=== PATIENT | female | born 1955 | race Caucasian/White ===

== ENCOUNTER 2017-03-07 01:34 | Emergency (ER) | payer OTHER ==
[2017-03-07 02:28] LABS: CALCIUM 8.8 mg/dL (8.5-10.1); CHLORIDE SERUM 101 mmol/L (98-107); CREATININE SERUM 0.9 mg/dL (0.6-1.0); GFR1 > 60 mL/min; GLUCOSE SERUM 121 mg/dL (74-106); SODIUM SERUM 140 mmol/L (136-145)
[2017-03-07 02:31] LABS: ALBUMIN 3.5 g/dL (3.4-5.0); ALKALINE PHOSPHATASE 103 U/L (46-116); ALT/SGPT 25 U/L (14-59); AST/SGOT 12 U/L (15-37); BASOPHIL % 0.1 % (0-2); BILIRUBIN TOTAL 0.4 mg/dL (0.20-1.00); TOTAL PROTEIN, SERUM 7.7 g/dL (6.4-8.2)
[2017-03-07 02:40] LABS: PLATELET COUNT 426 x10^3mcL (130-400); RED CELL DISTRIBUTION WIDTH 17.8 % (11.5-14.5)
[2017-03-07 05:25] VITALS: BP 138/88
== END 2017-03-07 05:25 | disposition home or self-care (01) ==
LOC: ED 01:34
PROVIDERS: Emergency Medicine
DX: R51 Headache (principal); Z88.5 Allergy status to narcotic agent; R11.10 Vomiting, unspecified
CPT/HCPCS: J1170; Q0162

== ENCOUNTER 2017-09-06 12:11 | Emergency (ER) | payer OTHER ==
[2017-09-06 14:27] VITALS: BP 132/83
== END 2017-09-06 14:27 | disposition home or self-care (01) ==
LOC: ED 12:11
DX: S00.83XA Contusion of other part of head, initial encounter (principal); Z88.5 Allergy status to narcotic agent; W50.0XXA Accidental hit or strike by another person, initial encounter; Y93.89 Activity, other specified; Y99.8 Other external cause status; Y92.89 Other specified places as the place of occurrence of the external cause

== ENCOUNTER 2018-04-02 20:38 | Inpatient (IN) | payer OTHER ==
[~2018-04-02] VITALS: Ht 170.2 cm; Wt 93.6 kg
[2018-04-02 21:35] LABS: CALCIUM 8.7 mg/dL (8.5-10.1); CARBON DIOXIDE 29.5 mmol/L (21-32); CHLORIDE SERUM 102 mmol/L (98-107); CREATININE SERUM 0.8 mg/dL (0.6-1.0); GFR1 > 60 mL/min; GLUCOSE SERUM 143 mg/dL (74-106); POTASSIUM SERUM 3.2 mmol/L (3.5-5.1); SODIUM SERUM 138 mmol/L (136-145)
[2018-04-02 21:40] LABS: ALKALINE PHOSPHATASE 83 U/L (46-116); ALT/SGPT 16 U/L (14-59); AST/SGOT 10 U/L (15-37); BILIRUBIN TOTAL 0.2 mg/dL (0.20-1.00); CHOLESTEROL 171 mg/dL (<200); HDL CHOLESTEROL 49 mg/dL (40-60); TOTAL PROTEIN, SERUM 7.2 g/dL (6.4-8.2)
[2018-04-02 21:41] LABS: ALBUMIN 3.2 g/dL (3.4-5.0)
[2018-04-02 21:58] LABS: PLATELET COUNT 455 x10^3mcL (130-400); RED CELL DISTRIBUTION WIDTH 20.8 % (11.5-14.5)
[2018-04-02 22:03] LABS: BAND NEUTROPHIL 1 % (0-10); BASOPHIL 0 % (0-2); MONOCYTE 2 % (0-7); SEGMENTED NEUTROPHILS 68 % (37-75)
[2018-04-02 22:04] LABS: rbc morphology (normal/abnorm) ABNORMAL (NORMAL)
[2018-04-02 22:05] LABS: ovalocyte/elliptocyte 1+
[2018-04-02 22:15] LABS: PATH REVIEW for HEMA YES
[2018-04-02] MEDS ORDERED: PROTONIX40 MG PO (22:58)
[2018-04-02 23:37] VITALS: BP 147/68
[2018-04-03] VITALS (8 sets, daily range): BP systolic 122–150; BP diastolic 63–88
[2018-04-03 02:40] LABS: microscopic required? NO
[2018-04-03 02:54] LABS: UA SPECIFIC GRAVITY 1.015 (1.005-1.035); urine erythrocyte NEGATIVE (NEGATIVE)
[2018-04-03 13:51] LABS: PLATELET COUNT 430 x10^3mcL (130-400); RED CELL DISTRIBUTION WIDTH 27.5 % (11.5-14.5)
[2018-04-03 13:54] LABS: BAND NEUTROPHIL 1 % (0-10); MONOCYTE 6 % (0-7); SEGMENTED NEUTROPHILS 68 % (37-75); rbc morphology (normal/abnorm) ABNORMAL (NORMAL)
[2018-04-03 13:55] LABS: ovalocyte/elliptocyte 1+
[2018-04-04 05:12] VITALS: BP 125/60
[2018-04-04 09:40] VITALS: BP 140/63
[2018-04-04 12:47] VITALS: BP 135/68
[2018-04-04 13:19] LABS: ALBUMIN 3.4 g/dL (3.4-5.0); ALKALINE PHOSPHATASE 86 U/L (46-116); ALT/SGPT 17 U/L (14-59); AST/SGOT 18 U/L (15-37); BILIRUBIN TOTAL 0.45 mg/dL (0.20-1.00); CALCIUM 8.9 mg/dL (8.5-10.1); CARBON DIOXIDE 31.3 mmol/L (21-32); CHLORIDE SERUM 102 mmol/L (98-107); CREATININE SERUM 0.8 mg/dL (0.6-1.0); GFR1 > 60 mL/min; GLUCOSE SERUM 114 mg/dL (74-106); POTASSIUM SERUM 3.6 mmol/L (3.5-5.1); SODIUM SERUM 138 mmol/L (136-145); TOTAL PROTEIN, SERUM 7.7 g/dL (6.4-8.2)
[2018-04-04 14:31] LABS: PLATELET COUNT 454 x10^3mcL (130-400); RED CELL DISTRIBUTION WIDTH 29.2 % (11.5-14.5)
[2018-04-04 14:32] LABS: ATYPICAL LYMPH 7 %; BAND NEUTROPHIL 0 % (0-10); BASOPHIL 0 % (0-2); MONOCYTE 5 % (0-7); SEGMENTED NEUTROPHILS 67 % (37-75); rbc morphology (normal/abnorm) ABNORMAL (NORMAL)
[2018-04-04 14:33] LABS: PLATELET MORPHOLOGY PLATELETS INCREASED
[2018-04-04] MEDS ORDERED: FER300 PO (14:45)
[2018-04-04 14:48] VITALS: BP 135/68
== END 2018-04-04 17:15 | disposition home or self-care (01) | DRG 244 ==
LOC: ED 20:38 → DU 22:47
PROVIDERS: Emergency Medicine; Internal Medicine Gastroenterology; Internal Medicine Pulmonary Disease
PROC: 0DB78ZX Excision of Stomach, Pylorus, Via Natural or Artificial Opening Endoscopic, Diagnostic (ICD-10-PCS; 2018-04-03)
PROC: 30233N1 Transfusion of Nonautologous Red Blood Cells into Peripheral Vein, Percutaneous Approach (ICD-10-PCS; principal; 2018-04-03 12:45)
PROC: 0DB38ZX Excision of Lower Esophagus, Via Natural or Artificial Opening Endoscopic, Diagnostic (ICD-10-PCS; 2018-04-03 12:45)
PROC: 0DBL8ZX Excision of Transverse Colon, Via Natural or Artificial Opening Endoscopic, Diagnostic (ICD-10-PCS; 2018-04-04)
DX: K57.31 Diverticulosis of large intestine without perforation or abscess with bleeding (principal); K22.11 Ulcer of esophagus with bleeding; E87.6 Hypokalemia; D64.9 Anemia, unspecified; K44.9 Diaphragmatic hernia without obstruction or gangrene; F17.210 Nicotine dependence, cigarettes, uncomplicated; F15.90 Other stimulant use, unspecified, uncomplicated; Z90.710 Acquired absence of both cervix and uterus; Z88.5 Allergy status to narcotic agent
CPT/HCPCS: 43235; 45378; 83880; 99406; C9113; J1200; J1610; J1940; J2250; J2310; J2765; J2916; J3010; J3490; J7030; J7040; J7050; J7613; P9016; Q0092

== ENCOUNTER 2019-02-09 22:55 | Emergency (ER) | payer OTHER ==
[~2019-02-09] VITALS: Ht 175.3 cm; Wt 89.4 kg
[~2019-02-09 22:55] MED LIST: FER300 PO; PROTONIX40 MG PO
[2019-02-09 23:02] VITALS: Ht 175.3 cm; Wt 89.4 kg
[2019-02-10 00:33] VITALS: BP 166/98
== END 2019-02-10 00:33 | disposition home or self-care (01) ==
LOC: ED 22:55
DX: S46.911A Strain of unspecified muscle, fascia and tendon at shoulder and upper arm level, right arm, initial encounter (principal); Z88.5 Allergy status to narcotic agent; Z90.710 Acquired absence of both cervix and uterus; V49.49XA Driver injured in collision with other motor vehicles in traffic accident, initial encounter; W22.10XA Striking against or struck by unspecified automobile airbag, initial encounter; Y93.I9 Activity, other involving external motion; Y92.413 State road as the place of occurrence of the external cause; Y99.8 Other external cause status
CPT/HCPCS: J1885

== ENCOUNTER 2019-08-09 15:07 | Emergency (ER) | payer OTHER ==
[~2019-08-09] VITALS: Ht 170.2 cm; Wt 90.7 kg
[2019-08-09 15:11] VITALS: Ht 170.2 cm; Wt 90.7 kg
[2019-08-09 17:21] LABS: AMPHETAMINE QUAL UR POSITIVE (See below)
[2019-08-09 17:43] LABS: microscopic required? YES; urine erythrocyte 2+ (NEGATIVE)
[2019-08-09 17:45] LABS: PLATELET COUNT 295 x10^3mcL (130-400)
[2019-08-09 17:46] LABS: BASOPHIL % 0.1 % (0-2)
[2019-08-09 19:07] LABS: CALCIUM 7.9 mg/dL (8.5-10.1); CARBON DIOXIDE 28.6 mmol/L (21-32); CHLORIDE SERUM 98 mmol/L (98-107); CREATININE SERUM 0.8 mg/dL (0.6-1.0); GFR1 > 60 mL/min; POTASSIUM SERUM 4.3 mmol/L (3.5-5.1); SODIUM SERUM 136 mmol/L (136-145)
[2019-08-09 19:11] LABS: ALKALINE PHOSPHATASE 196 U/L (46-116); ALT/SGPT 56 U/L (14-59); AST/SGOT 39 U/L (15-37); BILIRUBIN TOTAL 0.57 mg/dL (0.20-1.00); GLUCOSE SERUM 88 mg/dL (74-106); LIPASE 84 IU/L (73-393); TOTAL PROTEIN, SERUM 7.7 g/dL (6.4-8.2)
[2019-08-09 19:12] LABS: ALBUMIN 2.8 g/dL (3.4-5.0); AMYLASE 21 U/L (25-115)
[2019-08-09 19:52] VITALS: BP 147/82
== END 2019-08-09 19:52 | disposition home or self-care (01) ==
LOC: ED 15:07
PROVIDERS: Emergency Medicine
DX: N39.0 Urinary tract infection, site not specified (principal); F15.10 Other stimulant abuse, uncomplicated; Z90.710 Acquired absence of both cervix and uterus; Z88.5 Allergy status to narcotic agent
CPT/HCPCS: G0480; J2270; J2405; J7030; Q9967